=== PATIENT | female | born 1945 | race Caucasian/White ===

== ENCOUNTER 2016-12-26 06:35 | Inpatient (IN) ==
[2016-12-21 09:18] LABS: MANUAL DIFF NEEDED? NO
[2016-12-21 09:23] LABS: URINE MICRO REVIEW NEEDED? NO; URINE SOURCE CLEAN CATCH
--- NOTE | 2016-12-21 09:28 | EKG Report ---
Test Performed on : 12/21/2016 09:07:30 AM Test Reason : PAT Blood Pressure : / mmHG Vent. Rate : 080 BPM Atrial Rate : 080 BPM P-R Int : 148 ms QRS Dur : 138 ms QT Int : 394 ms P-R-T Axes : 066 001 038 degrees QTc Int : 454 ms Normal sinus rhythm. Right bundle branch block Abnormal ECG When compared with ECG of 14-JAN-2016 09:57, No significant change was found Confirmed by Tevin MILLS, Derrell Santoyo ([id number]) on 12/23/2016 9:11:36 AM
[2016-12-21 09:37] LABS: BILIRUBIN URINE NEGATIVE (NEGATIVE); BLOOD URINE NEGATIVE (NEGATIVE); COLOR YELLOW; GLUCOSE URINE 500 mg/dL (NEGATIVE); LEUKOCYTES URINE LARGE (NEGATIVE); NITRITE URINE POSITIVE (NEGATIVE); PROTEIN URINE TRACE mg/dL (NEGATIVE); SP GRAVITY URINE 1.023; TURBIDITY URINE HAZY (CLEAR); UROBILINOGEN URINE NORMAL (NORMAL)
[2016-12-21 09:38] LABS: BASO% 0.6 % (0.0-0.8); EOS# 0.13 X1000 (0.0-0.7); HEMATOCRIT 41.9 % (37.0-47.0); HEMOGLOBIN 13.4 g/dL (12.0-16.0); LYMPH% 46.8 % (20.5-51.1); MCH 30.2 PG (27-31); MCV 94.4 FL (81-99); MONO# 0.54 X1000 (0.11-0.59); MONO% 8.1 % (1.7-9.3); MPV 10.3 FL (7.4-10.4); NEUT% 42.5 % (42.2-75.2); PLT 289 X1000 (130-400); RBC 4.44 XMIL (4.2-5.4); UR EPITHELIAL CELLS <10 /HPF (<10); URINE BACTERIA 4+ /HPF; URINE RBC <10 /HPF (<10)
[2016-12-21 09:46] LABS: INR 0.98; PROTIME 10.3 Seconds (9.2-11.7); PTT 24.9 Seconds (22.0-36.0)
[2016-12-21 09:56] LABS: AGAP 13; BUN 14 mg/dL (8-22); CALCIUM 9.2 mg/dL (8.8-10.2); CHLORIDE 99 mmol/L (98-107); COSMO 284; POTASSIUM 4.3 mmol/L (3.5-5.1); SODIUM 139 mmol/L (136-145); TCO2 27 mmol/L (25-35)
[2016-12-26] MEDS ORDERED: PEPCID ONE ×2 (06:56→07:35)
[2016-12-26] MEDS ORDERED: REGLAN ONE (06:56)
[2016-12-26] MEDS ORDERED: COLACE ONE (06:56)
[2016-12-26] MEDS ORDERED: CELEBREX ONE (06:57)
[2016-12-26] MEDS ORDERED: KEFZOL 1 GM/D5W 1 GM/50 ML IVPB ONE (06:57)
[2016-12-26] MEDS ORDERED: LR 1,000 ML ONE ×2 (06:57→11:44)
[2016-12-26] MEDS ORDERED: LYRICA ONE (07:01)
[2016-12-26] MEDS ORDERED: VANCOMYCIN ONE (08:22)
[2016-12-26] MEDS ORDERED: SODIUM CHLORIDE 0.9% ONE (08:22)
[2016-12-26] MEDS ORDERED: CYKLOKAPRON 1,000 MG/NS 1,000 MG/100 ML IVPB ONE ×2 (08:22→10:49)
[2016-12-26] MEDS ORDERED: MARCAINE 0.25% PF/EPI 1:200,000 ONE (08:22)
[2016-12-26] MEDS ORDERED: TORADOL ONE (08:22)
[2016-12-26] MEDS ORDERED: EXPAREL 1.3% ONE (08:23)
[2016-12-26] MEDS ORDERED: NEOSPORIN G.U. IRRIGANT ONE (08:23)
[2016-12-26] MEDS ORDERED: NS 1,000 ML ONE (11:20)
[2016-12-26] MEDS ORDERED: MORPHINE ONE (11:34)
[2016-12-26] MEDS ORDERED: FENTANYL ONE (11:34)
[2016-12-26] MEDS ORDERED: DIPRIVAN 1% ONE (11:35)
[2016-12-26] MEDS ORDERED: ZEMURON ONE (11:44)
[2016-12-26] MEDS ORDERED: OFIRMEV 1000 MG/ISOTONIC SOLN 1,000 MG/100 ML BOTTLE ONE (11:44)
[2016-12-26] MEDS ORDERED: XYLOCAINE-MPF 2% ONE (11:44)
[2016-12-26] MEDS ORDERED: DECADRON ONE (11:44)
[2016-12-26] MEDS: NS 1,000 ML IV SCH (12:30)
[2016-12-26 12:35] LABS: URINE MICRO REVIEW NEEDED? NO; URINE SOURCE CATH
[2016-12-26 12:42] LABS: BILIRUBIN URINE NEGATIVE (NEGATIVE); BLOOD URINE NEGATIVE (NEGATIVE); COLOR STRAW; GLUCOSE URINE NEGATIVE (NEGATIVE); LEUKOCYTES URINE NEGATIVE (NEGATIVE); NITRITE URINE NEGATIVE (NEGATIVE); PROTEIN URINE NEGATIVE (NEGATIVE); SP GRAVITY URINE 1.008; TURBIDITY URINE CLEAR (CLEAR); UROBILINOGEN URINE NORMAL (NORMAL)
[2016-12-26 12:44] LABS: UR EPITHELIAL CELLS <10 /HPF (<10); URINE BACTERIA NEGATIVE /HPF; URINE RBC <10 /HPF (<10); URINE WBC <10 /HPF (<10)
--- NOTE | 2016-12-26 12:59 | OPERATIVE NOTE ---
PROCEDURE DATE: 12/26/2016 PREOPERATIVE DIAGNOSIS: Left knee degenerative joint disease. POSTOPERATIVE DIAGNOSIS: Left knee degenerative joint disease. PROCEDURE: Left total knee arthroplasty using a [facility] size 8 femoral component, size 7 tibial base plate, a 14 mm articular insert, and a 32 mm patellar component. ANESTHESIA: Spinal. SURGEON: Marshall Posada MD RADIOGRAPHER CARDIAC CATHETERIZATION: CLINT Kessler COMPLICATIONS: None. BLOOD LOSS: Minimal. DRAINS: Hemovac x1. DESCRIPTION OF PROCEDURE: The patient was brought to operative suite and placed in supine position. After satisfactory administration of spinal anesthesia, a well-padded tourniquet was placed on the left proximal thigh. The left lower extremity was prepped and draped in the usual sterile fashion. Leg was exsanguinated. Tourniquet insufflated to 350 torr. A longitudinal incision was made beginning at the superior pole of the patella and extended distally to the tibia tuberosity, this was dissected sharply through the skin. Full-thickness skin flaps were elevated medially and laterally. A medial arthrotomy was made with a vastus snip. The medial capsule was elevated off the medial tibial plateau. The prepatellar fat pad, ACL, PCL, medial meniscus, and lateral meniscus were excised. A drill was entered in the center of the distal femur. An intramedullary guide was placed. Distal cutting block was pinned into place, distal cuts made with oscillating saw. The femur sized to size 8. A size 8 cutting block was pinned in place. The anterior cuts, chamfer cuts, and posterior condylar cuts were made with an oscillating saw. Marginal osteophytes were removed with a rongeur. A box cutting block was pinned in place. A box cut was made with box osteotome and oscillating saw and then posterior condyle osteophytes removed with curved osteotome and rongeur. Attention was then directed to the tibia. A drill was entered in the center of the tibia. An intramedullary guide was placed. Alignment was checked with a drop raghav, referencing off the anterior cortex of the tibia and the second ray of the foot, and taking 4 mm off the low side of the tibia, which in this case was medially. The tibial cutting block was pinned into place and the articular surface tibial plateau was removed with an oscillating saw. The tibia was sized to a size 7, a size 7 guide was used for the fin punch. The flexion-extension gaps were checked and balanced at 14 mm. The tibial trial, femoral trial, and 14 mm articular insert were placed, taken through range of motion found to have excellent alignment, balance, and range of motion. Attention was then directed to the patella and 9 mm of the articular surface of the patella were removed with an oscillating saw. Patella sized to size 32. A size 32 guide was used to drill peg holes. The lateral facet was chamfered 30 to 45 degrees. Patella trial was placed, taken through range of motion and found to have excellent patella tracking. All trials were then removed. The knee was copiously irrigated and dried. The tibial component, femoral component, patellar component pinned into place. Excess cement being removed with a [place]. Once the cement had hardened, excess cement was again removed with an osteotome. The knee was again copiously irrigated and dried, being certain all bone and cement debris were removed. The trial articular insert was removed. The knee was copiously infiltrated with Exparel, including posterior capsule, anterior capsule, medial and lateral collateral ligaments, intramuscular subcutaneous tissue. The definitive articular insert was locked into place. The knee was again taken through range of motion. Again, found to have excellent alignment, balancing, range of motion patellar tracking. A drain was placed exiting superior laterally and placed in the lateral gutter. The medial arthrotomy was closed with running V-Loc 0 suture and then the skin edge approximated with 2-0 Vicryl. Skin was closed with Prineo. A sterile dressing was applied. The patient tolerated the procedure well without complication. At the end of the procedure, all counts correct. The patient was transferred to the recovery room in stable condition. cc: Marshall Posada MD
[2016-12-26] MEDS ORDERED: ZOFRAN IV PRN (13:00)
[2016-12-26] MEDS ORDERED: MILK OF MAGNESIA PO PRN (13:00)
[2016-12-26] MEDS ORDERED: MORPHINE IV PRN (13:00)
[2016-12-26] MEDS ORDERED: AMBIEN PO PRN (13:00)
[2016-12-26] MEDS ORDERED: ULTRAM PO SCH (13:00)
[2016-12-26] MEDS: OXY IR PO PRN ×3 (13:42→20:04)
[2016-12-26] MEDS: GLUCOPHAGE PO SCH (17:22)
[2016-12-26] MEDS: TYLENOL PO SCH (17:22)
[2016-12-26] MEDS: ULTRAM PO SCH (17:22)
[2016-12-26] MEDS: KEFZOL 2 GM/D5W 2 GM/50 ML IVPB IV SCH (17:23)
[2016-12-26] MEDS: CELEBREX PO SCH (20:04)
[2016-12-26] MEDS: COLACE PO SCH (20:04)
[2016-12-26] MEDS: PERIDEX MT SCH (20:04)
[2016-12-26] MEDS: LYRICA PO SCH (20:05)
[2016-12-27] MEDS: TYLENOL PO SCH ×2 (01:04→06:33)
[2016-12-27] MEDS: ULTRAM PO SCH ×2 (01:04→06:33)
[2016-12-27] MEDS: KEFZOL 2 GM/D5W 2 GM/50 ML IVPB IV SCH (01:05)
[2016-12-27] MEDS: OXY IR PO PRN (04:21)
[2016-12-27] MEDS ORDERED: XARELTO PO SCH (06:00)
[2016-12-27 06:09] LABS: HEMATOCRIT 35.5 % (37.0-47.0); HEMOGLOBIN 11.4 g/dL (12.0-16.0)
[2016-12-27 06:17] LABS: AGAP 15; BUN 13 mg/dL (8-22); CALCIUM 8.6 mg/dL (8.8-10.2); CHLORIDE 97 mmol/L (98-107); COSMO 273; SODIUM 134 mmol/L (136-145); TCO2 22 mmol/L (25-35)
[2016-12-27] MEDS: NS 1,000 ML IV SCH (06:54)
[2016-12-27 07:25] VITALS: BP 140/55
[2016-12-27] MEDS: PERIDEX MT SCH (08:06)
[2016-12-27] MEDS: GLUCOPHAGE PO SCH (08:07)
[2016-12-27] MEDS: COLACE PO SCH (08:08)
[2016-12-27] MEDS: CELEBREX PO SCH (08:08)
[2016-12-27] MEDS: LYRICA PO SCH (08:08)
[2016-12-27] MEDS ORDERED: PEPCID PO SCH (09:00)
[2016-12-27] MEDS ORDERED: JANUVIA PO SCH (09:00)
[2016-12-27] MEDS ORDERED: NORVASC PO SCH (09:00)
[2016-12-27] MEDS ORDERED: DECADRON IV ONE (09:00)
[2016-12-27] MEDS ORDERED: GLUCOTROL PO SCH (09:00)
[2016-12-27] MEDS ORDERED: COZAAR PO SCH (09:00)
--- NOTE | 2016-12-27 20:32 | DISCHARGE SUMMARY ---
ADMISSION DATE: 12/26/2016 DISCHARGE DATE: 12/27/2016 DISCHARGE DIAGNOSIS: Left knee degenerative joint disease status post left total knee arthroplasty. DISCHARGE MEDICATIONS: See discharge medication list. DISPOSITION: Patient is discharged home with home health. DISCHARGE INSTRUCTIONS: Given instructions for total knee arthroplasty protocol. She was instructed to return to see Dr. Posada next . HOSPITAL COURSE: On the day of admission, patient underwent a left total knee arthroplasty. Her postoperative course was unremarkable. At discharge she is afebrile, tolerating a regular diet. Her hemoglobin is 11.4 and her hematocrit is 35.5. She had 60 mL of drainage from her Hemovac. Her wound is clean, dry, intact without sign of infection. Yesterday she only walked 5 feet with Physical Therapy so we are instructing her to discharge after she walks with Physical Therapy this morning. She is discharged home with home health in stable condition after working with Physical Therapy. She is instructed to follow up as described above. Dictated by CLINT Quiñones for Marshall Posada MD cc: CLINT Quiñones MD
== END 2016-12-27 11:17 | disposition home health service (06) ==
LOC: SURHOLD 06:35 → 4N 09:48
PROVIDERS: ADMIT Orthopaedic Surgery; ATTEND Orthopaedic Surgery

== ENCOUNTER 2019-09-25 05:23 | Inpatient (IN) ==
[2019-09-19 14:29] LABS: BASO# 0.06 X1000 (0.0-0.2); BASO% 0.9 % (0.0-0.8); EOS# 0.21 X1000 (0.0-0.7); HEMATOCRIT 42.3 % (37.0-47.0); HEMOGLOBIN 13.2 g/dL (12.0-16.0); LYMPH# 2.93 X1000 (1.2-3.4); LYMPH% 41.6 % (20.5-51.1); MCH 28.7 PG (27-31); MCHC 31.2 g/dL (33-37); MONO# 0.43 X1000 (0.11-0.59); MONO% 6.1 % (1.7-9.3); MPV 10.5 FL (7.4-10.4); NEUT# 3.41 X1000 (1.4-6.5); NEUT% 48.4 % (42.2-75.2); PLT 282 X1000 (130-400); RDW 13.8 % (11.5-14.5); WBC 7.04 X1000 (4.8-10.8)
--- NOTE | 2019-09-19 14:46 | EKG Report ---
Test Performed on : 09/19/2019 2:13:35 PM Test Reason : pre-op Blood Pressure : / mmHG Vent. Rate : 083 BPM Atrial Rate : 083 BPM P-R Int : 142 ms QRS Dur : 134 ms QT Int : 396 ms P-R-T Axes : 070 032 035 degrees QTc Int : 465 ms Normal sinus rhythm. Possible Left atrial enlargement Right bundle branch block Possible Inferior infarct (cited on or before 21-DEC-2017) Abnormal ECG When compared with ECG of 21-DEC-2017 10:16, No significant change was found Confirmed by Jarrod Andersen MD ([id number]) on 09/19/2019 9:39:37 PM
[2019-09-19 15:03] LABS: AGAP 13; BUN 18 mg/dL (8-22); CALCIUM 9.4 mg/dL (8.8-10.2); CHLORIDE 100 mmol/L (98-107); COSMO 289; CREATININE 0.7 mg/dL (0.5-0.9); ESTIMATED GFR > 60; GLUCOSE 231 mg/dL (70-104); POTASSIUM 4.2 mmol/L (3.5-5.1); SODIUM 140 mmol/L (136-145); TCO2 27 mmol/L (25-35)
--- NOTE | 2019-09-25 03:45 | HISTORY AND PHYSICAL ---
HISTORY: The patient is a 74-year-old with a history of a prior posterior compartment defect repair and enterocele repair, who subsequently underwent an anterior compartment repair with placement of a mid urethral sling. She has now had a recurrence apically. She is being admitted at this time for colpectomy. The risks and benefits of colpectomy were explained at length. She understands, and is wishing to proceed with surgical intervention. PAST MEDICAL HISTORY: Positive for diabetes, hypertension, and hypercholesterolemia. PAST SURGICAL HISTORY: As noted above. Positive for prior tuscarora tissue repairs in the anterior and posterior compartment as well as a right rotator cuff. She is noted to be a para 3, 0-0-3. ALLERGIES: None. CURRENT MEDICATIONS: 1. Glyburide 5. 2. Metformin 1000. 3. Losartan 100. 4. Amlodipine 5. SOCIAL HISTORY: Negative for tobacco, ETOH, or drugs. FAMILY HISTORY: Noncontributory. PHYSICAL EXAMINATION: GENERAL: BMI is 28. HEENT: Normocephalic, atraumatic. PERRLA. EOMI. NECK: No thyromegaly. CV: Regular rate and rhythm without murmur, gallop, or rub. PULMONARY: Clear to auscultation and percussion. ABDOMEN: Soft. : Prolapse of the apical and anterior compartment despite prior tuscarora tissue repair. ASSESSMENT AND PLAN: The risks and benefits of an obliterative procedure explained at length. She understands and is wishing to proceed. cc: Yoel Alarcon MD
[2019-09-25] MEDS ORDERED: DIPRIVAN 1% ONE (06:02)
[2019-09-25] MEDS ORDERED: FENTANYL ONE (06:02)
[2019-09-25] MEDS ORDERED: REGLAN ONE (06:04)
[2019-09-25] MEDS ORDERED: LR 1,000 ML ONE ×2 (06:04→08:44)
[2019-09-25] MEDS ORDERED: KEFZOL 1 GM/D5W 2 GM/100 ML IVPB ONE (06:04)
[2019-09-25] MEDS ORDERED: PEPCID ONE (06:04)
[2019-09-25] MEDS ORDERED: SENSORCAINE 0.5%-EPI 1:200,000 ONE (06:15)
[2019-09-25] MEDS ORDERED: SODIUM CHLORIDE 0.9% ONE (06:15)
[2019-09-25] MEDS ORDERED: DECADRON ONE (06:53)
[2019-09-25] MEDS ORDERED: ZOFRAN ONE (06:53)
[2019-09-25] MEDS ORDERED: TORADOL ONE ×2 (07:02→09:16)
[2019-09-25] MEDS ORDERED: LASIX ONE ×2 (07:34→07:46)
[2019-09-25] MEDS: D10W 500 ML ONE ×2 (08:07→23:27)
[2019-09-25 08:45] LABS: URINE SOURCE CATH
[2019-09-25 08:52] LABS: BILIRUBIN URINE NEGATIVE (NEGATIVE); BLOOD URINE SMALL (NEGATIVE); COLOR YELLOW; GLUCOSE URINE 150 mg/dL (NEGATIVE); KETONE URINE NEGATIVE (NEGATIVE); LEUKOCYTES URINE LARGE (NEGATIVE); NITRITE URINE POSITIVE (NEGATIVE); PH URINE 5.5; PROTEIN URINE TRACE mg/dL (NEGATIVE); SP GRAVITY URINE 1.012; TURBIDITY URINE HAZY (CLEAR); UROBILINOGEN URINE NORMAL (NORMAL)
[2019-09-25 08:53] LABS: UR EPITHELIAL CELLS <10 /HPF (<10); URINE BACTERIA 4+ /HPF; URINE RBC <10 /HPF (<10); URINE WBC TNTC /HPF (<10)
--- NOTE | 2019-09-25 09:24 | OPERATIVE NOTE ---
PROCEDURE DATE: 09/25/2019 PREOPERATIVE DIAGNOSIS: Vault prolapse. POSTOPERATIVE DIAGNOSIS: Vault prolapse. OPERATION: Colpectomy. SURGEON: Yoel Alarcon MD ANESTHESIA: General. ESTIMATED BLOOD LOSS: 30 mL. HISTORY: The patient is a 74-year-old female who has had a prior anterior compartment defect repair, posterior compartment defect repair, and midurethral sling, and she is still struggling with vault prolapse. She has had an apical suspension performed with both of those, and I believe they were sacrospinous ligament suspensions. However, her medical comorbidities and weight are overwhelming. She is admitted at this time for a colpectomy. 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 The apex of the vagina was easily 4 to 5 cm beyond the hymenal ring. The patient was found to have efflux of urine from both ureters after completion of the procedure on cystoscopy. DESCRIPTION OF OPERATION: The patient was taken operating room and was placed in supine position. After adequate general anesthesia was obtained, she was placed in candy-cane stirrups. Her vagina and perineum were prepped and draped in usual fashion. The obvious defect was protruding beyond the vaginal introitus and the apex was identified with Allis clamps. We then demarcated all the vaginal mucosa to the anterior and posterior and divided it into quadrants using a marking pen. Starting with the anterior two quadrants, we did a hydrodissection, but it was a split-thickness dissection, trying to maintain as much of the vaginal fibrous tissue as possible with the viscus. After completion of this, we then turned our attention towards the posterior compartment and repeated the same procedure with the split-thickness dissection and removal of the vaginal mucosa. Anteriorly, it went from the urethrovesical neck to the apex and posteriorly went from the apex to the perineal body. Upon doing this, we then began with the reconstruction. We used interrupted 2- 0 Vicryl ligatures in a pursestring fashion. Starting at the most distal portion we continued until we had complete imbrication of the defects and we had the anterior and posterior portions of the vagina at the perineal body and the UV neck nearly touching each other. We used electrocautery to provide hemostasis of small bleeders of both viscus. We did all of this with 2- 0 Vicryl ligatures. After completion of this, we used 0 Vicryl ligatures to close the remaining anterior portion to the vagina posteriorly at the introitus. At this time, we turned our attention towards performing a perineorrhaphy. We made a brad-shaped incision in this area, after injecting the same with the local anesthesia mixture. We created a second-degree type of episiotomy, and in doing this we then were able to plicate the perineal body with the transverse perinea and strengthened the distal anal portion by plicating the levators distally. This gave better support to the perianal region as well. In doing that, we then closed the remaining incision as if it was a small episiotomy with 2-0 Vicryl ligatures. A cystoscopy had already been performed after completion of the colpectomy. Both ureters were found to be effluxing. We did have to give her 40 of Lasix to do this, however, her kidney function is somewhat depressed based on her medical comorbidities. A rectal examination was performed after completion of the procedure, and there was no evidence of any abnormality. A Shepherd catheter was placed and output was noted to be clear. Sponge counts, instrument counts, and needle counts were correct x3. [facility], awakened, and taken to the recovery room with vital signs stable. cc: Yoel Alarcon MD
[2019-09-25] MEDS: COZAAR PO SCH ×3 (11:06→11:11)
[2019-09-25] MEDS: GLUCOPHAGE PO SCH ×2 (11:07→18:44)
[2019-09-25] MEDS: COLACE PO SCH ×2 (11:07→21:53)
[2019-09-25] MEDS: NORVASC PO SCH ×2 (11:07→11:10)
[2019-09-25] MEDS: PERIDEX MT SCH ×2 (11:08→21:53)
[2019-09-25] MEDS: LR 1,000 ML IV SCH ×2 (11:12→16:36)
[2019-09-25] MEDS: LANTUS INSULIN SUBQ SCH (11:18)
[2019-09-25] MEDS: NORCO-5 PO PRN ×2 (13:37→21:53)
[2019-09-25] MEDS: TORADOL IV SCH ×2 (13:40→18:45)
--- NOTE | 2019-09-25 14:55 | PROGRESS NOTE ---
DATE: 09/25/2019 TIME: Approximately 2:35. SUBJECTIVE: Patient is alert and oriented. OBJECTIVE: Afebrile, vital signs stable. Her urine from the lab did show a significant UTI with white cells and nitrites. The culture is pending. ASSESSMENT AND PLAN: Routine postoperative care. Voiding trial in the morning. We will also await the culture results and base further therapy on that. cc: Yoel Alarcon MD
[2019-09-25] MEDS ORDERED: PRAVACHOL PO SCH (21:00)
[2019-09-26] MEDS: LR 1,000 ML IV SCH (00:34)
[2019-09-26] MEDS: TORADOL IV SCH ×2 (00:34→05:47)
[2019-09-26] MEDS: NORCO-5 PO PRN (05:47)
--- NOTE | 2019-09-26 07:01 | DISCHARGE SUMMARY ---
ADMISSION DATE: 09/25/2019 DISCHARGE DATE: 09/26/2019 PRINCIPAL DIAGNOSIS: Pelvic organ prolapse. PROCEDURE: Colpectomy. HISTORY: The patient is a 74-year-old female with history of augustine tissue repair x2 in the anterior and posterior compartments, who presented with vault eversion. She had been managed with pessary and wished to proceed to surgical correction. HOSPITAL COURSE: Patient underwent the above-stated procedure. Blood loss at the time was approximately 50 mL. Her postoperative course has been uncomplicated. She is currently undergoing voiding trial, and will be discharged home with instructions for followup in 3 weeks. DISCHARGE MEDICATIONS: [place] and [place]. DISCHARGE DISPOSITION: She was instructed in a regular diet and decreased activity. cc: Yoel Alarcon MD
[2019-09-26 07:55] VITALS: BP 122/88
[2019-09-26] MEDS: LANTUS INSULIN SUBQ SCH (08:26)
[2019-09-26] MEDS: PERIDEX MT SCH (08:26)
[2019-09-26] MEDS: NORVASC PO SCH (08:26)
[2019-09-26] MEDS: COLACE PO SCH (08:26)
[2019-09-26] MEDS: GLUCOPHAGE PO SCH (08:26)
[2019-09-26] MEDS: COZAAR PO SCH (08:26)
== END 2019-09-26 10:42 | disposition home or self-care (01) | DRG 748 ==
LOC: SURHOLD 05:23 → 4N 08:03
PROVIDERS: ADMIT Obstetrics & Gynecology; ATTEND Obstetrics & Gynecology